=== PATIENT | female | born 1925 | race Caucasian/White ===

== ENCOUNTER 2016-12-12 13:43 | Emergency (ER) | payer MEDICARE, OTHER ==
[2016-12-12] MEDS ORDERED: DIPH,PERTUSS(ACELL),TET VAC/PF 0.5 ML DISP.SYRIN IM ONE (14:16)
[2016-12-12] MEDS ORDERED: HYDROcodone /APAP 5/325 1 EACH TABLET PO ONE (14:53)
[2016-12-12 15:07] LABS: BASOPHILS % 0.4 (0.0-1.5); LYMPHOCYTES # 0.9 # k/uL (0.6-4.0); MEAN CORPUSCULAR HEMOGLOBIN 30.6 pg (28.0-34.0); MONOCYTES # 0.3 # k/uL (0.0-0.9); MONOCYTES % 6.6 % (0.0-11.0); NEUTROPHILS # 3.1 # k/uL (1.4-7.7)
--- NOTE | 2016-12-12 15:18 | Diagnostic Imaging Report ---
[facility] [address] [facility].[address] [address] Report Submission Date: Dec 12, 2016 2:43:47 PM CONTRACT ASSOCIATE Patient Study Name: ANEESH ESPITIA Date: Dec 12, 2016 2:30:51 PM CONTRACT ASSOCIATE Modality Type: CR Gender: F Description: LOWER EXTREMITY : [birth year] Institution: [facility] Physician CAITLIN WOODWARD - ER Right knee -three views CLINICAL HISTORY: Fall. Pain anteriorly. FINDINGS: Examination right knee AP, lateral and sunrise views demonstrates degenerative changes with narrowing of the joint space bilaterally. There are prominent lateral osteophytes. There is mild prominence of the tibial spines. There is no evident fracture or joint effusion. IMPRESSION: Degenerative changes. No fracture. Electronically signed on Dec 12, 2016 2:43:47 PM CONTRACT ASSOCIATE by: Ramana CARRION
--- NOTE | 2016-12-12 15:18 | Diagnostic Imaging Report ---
[facility] [address] [facility] [address] [address] Report Submission Date: Dec 12, 2016 2:42:07 PM CONFIGURATION MANAGEMENT SPECIALIST Patient Study Name: ANEESH ESPITIA Date: Dec 12, 2016 2:22:38 PM CONFIGURATION MANAGEMENT SPECIALIST Modality Type: CT\SR Gender: F Description: CT BRAIN W/O CONTRAST : [birth year] Institution: [facility] Physician CAITLIN WOODWARD - KEVIN Head CT without contrast CLINICAL HISTORY: Fall. TECHNIQUE: CT examination of brain is performed in contiguous axial slices without the use of contrast. Sagittal and coronal reconstructions are performed by the technologist. FINDINGS: The 4th ventricle lies in a normal midline position. The ventricles and sulci are prominent secondary to atrophy. Chronic ischemic changes are present in the periventricular regions. Intracranial atherosclerosis is demonstrated in the region of the carotid siphon. Retention cyst is present in the sphenoid sinus. The mastoid air cells are clear. IMPRESSION: Atrophy and chronic small vessel ischemic changes. Intracranial atherosclerosis. No acute intracranial changes. Electronically signed on Dec 12, 2016 2:42:07 PM CONFIGURATION MANAGEMENT SPECIALIST by: Ramana CARRION
[2016-12-12 15:29] LABS: eGFR (African) > 60; eGFR (Non-African) > 60
--- NOTE | 2016-12-12 15:56 | ED Physician Documentation ---
General Adult - HISTORIAN Historian: patient - HPI Stated Complaint: fall Chief Complaint: General Adult Onset: hours Timing: still present Severity: moderate Further Comments: yes (Pt is an 89 yo female who fell earlier today and struck her head on the edge of a door to a store in [place]. Pt then fell to the pavement and struck her R knee. Pt also sustained a small laceration to the small finger of her L hand. Pt has no neck pain. She did not lose consciousness. Tetanus status unknown. Pt states head pain is 8/10 severity.) - ROS CONST: no problems EYES/ENT: none, problems with vision CVS/RESP: none GI/: none MS/SKIN/LYMPH: other (laceration L small finger) NEURO/PSYCH: headache - PAST HX Past History: hypertension Surgeries/Procedures: hysterectomy, other (ortho surgery) Allergies/Adverse Reactions: Allergies Allergy/AdvReac Type Severity Reaction Status Date / Time sulfamethoxazole Allergy Intermediate Abdominal Verified 12/12/16 14:39 [From Bactrim] pain trimethoprim [From Bactrim] Allergy Intermediate Abdominal Verified 12/12/16 14: 39 pain - SOCIAL HX Smoking History: non-smoker - FAMILY HX Family History: No - VITAL SIGNS Vital Signs: Vital Signs Temp Pulse Resp BP Pulse Ox 99.1 F 68 16 156/55 93 12/12/16 13:50 12/12/16 13:50 12/12/16 13:50 12/12/16 13:50 12/12/16 13:50 - REVIEWED ASSESSMENTS Nursing Assessment Reviewed: Yes Vitals Reviewed: Yes Procedures Wound Location: upper extremity (L hand, 5th digit, flap laceration, 1.5 cm.) Wound's Depth, Shape: superficial Wound Explored: clean Irrigated w/ Saline (ccs): 50 Betadine Prep?: Yes Wound Debrided: minimal Wound Repaired With: steri-strips, Dermabond Progress - Progress Progress: CT head: Atrophy and chronic small vessel ischemic changes. Intracranial atherosclerosis. No acute intracranial changes. X-ray R knee: Degenerative changes. No fracture. Felton (5/325) 1 tab in ER. SURESH wrap Tylenol/Ibuprofen f/u pcp ED Results Lab/Radiology - Lab Results Lab Results: Lab Results 12/12/16 12/12/16 15:00 15:00 WBC 4.50 K/ul K/ul (4.00-12.00) RBC 4.47 M/ul M/ul (3.90-5.20) Hgb 13.7 g/dL g/dL (12.0-16.0) Hct 42.6 % % (34.5-46.5) MCV 95.2 fl fl (80.0-100.0) MCH 30.6 pg pg (28.0-34.0) MCHC 32.2 g/dL g/dL (30.0-36.0) RDW 13.3 % % (11.3-14.3) Plt Count 189 K/mm3 K/mm3 (130-400) Neut % (Auto) 69.0 % % (39.0-79.0) Lymph % (Auto) 19.7 % % (16.0-50.0) Oldham % (Auto) 6.6 % % (0.0-11.0) Eos % (Auto) 3.0 % % (0.0-6.8) Baso % (Auto) 0.4 (0.0-1.5) Neut # 3.1 # k/uL # k/uL (1.4-7.7) Lymph # 0.9 # k/uL # k/uL (0.6-4.0) Oldham # 0.3 # k/uL # k/uL (0.0-0.9) Eos # 0.1 # k/uL # k/uL (0.0-0.6) Baso # 0.0 # k/uL # k/uL (0.0-0.5) Reactive Lymphs % 1.4 % % (0.0-5.0) Reactive Lymphs # 0.1 # k/uL # k/uL (0.0-0.8) Sodium 140 mmol/L mmol/L (136-145) Potassium 4.2 mmol/L mmol/L (3.5-5.0) Chloride 108 mmol/L mmol/L (98-110) Carbon Dioxide 26 mmol/L mmol/L (20-32) BUN 14 mg/dL mg/dL (10-26) Creatinine 0.9 mg/dL mg/dL (0.4-1.5) Estimated Creat Clear 52 Est GFR ( Amer) > 60 (60 - ) Est GFR (Non-Af Amer) > 60 (60 - ) Glucose 119 mg/dL H mg/dL (70-99) Calcium 8.7 mg/dL mg/dL (8.5-10.5) Total Bilirubin 0.6 mg/dL mg/dL (0.2-1.2) AST 20 U/L U/L (0-41) ALT 10 U/L U/L (0-45) Alkaline Phosphatase 50 U/L U/L (46-116) Total Protein 6.7 g/dL g/dL (6.0-8.5) Albumin 3.7 g/dL g/dL (3.0-5.5) - Orders Orders: ED Orders Category Date Time Status CT BRAIN W/O CONTRAST Stat Exams 12/12/16 Completed KNEE 3 VIEWS [RAD] Stat Exams 12/12/16 Completed CBC/PLATELET/DIFF Routine Lab 12/12/16 15:00 Completed CMP Routine Lab 12/12/16 15:00 Completed TSH [THYROID STIMULATING HORMONE] Stat Lab 12/12/16 15:00 Received Diph,Pertuss(Acell),Tet Vac/Pf [Adacel] Med 12/12/16 14:16 Discontinued 0.5 ml IM .ONCE ONE HYDROcodone /APAP 5/325 [Felton 5/325] Med 12/12/16 14:53 Discontinued 1 each PO NOW ONE General Adult Physical Exam - PHYSICAL EXAM GENERAL APPEARANCE: small hematoma central forehead at hairline EENT: eye inspection normal, ENT inspection normal, pharynx normal NECK: normal inspection, supple RESPIRATORY: no resp distress, chest non-tender, breath sounds normal CVS: reg rate & rhythm, heart sounds normal ABDOMEN: soft, no organomegaly, normal bowel sounds BACK: normal inspection, no CVA tenderness SKIN: other (small flap laceration, 5th digit of L hand, superficial) EXTREMITIES: other (bruising R knee with superficial swelling; FROM; no ligamentous instability.) NEURO: oriented X3, motor nml, sensation nml Discharge Clincal Impression: Minor head trauma Fall Qualifiers: Encounter type: initial encounter Qualified Code(s): W19.XXXA - Unspecified fall, initial encounter Right knee injury Qualifiers: Encounter type: initial encounter Qualified Code(s): S89.91XA - Unspecified injury of right lower leg, initial encounter Finger laceration Qualifiers: Encounter type: initial encounter Qualified Code(s): S61.219A - Laceration without foreign body of unspecified finger without damage to nail, initial encounter Referrals: Jude Galvan MD [Primary Care Provider] - Condition: Stable Disposition: 01 HOME, SELF-CARE Decision to Admit: NO Decision Time: 18:27
[2016-12-12 17:04] VITALS: BP 164/81
== END 2016-12-12 16:14 | disposition home or self-care (01) ==
LOC: ED 13:43
DX: S89.91XA Unspecified injury of right lower leg, initial encounter (principal); S61.219A Laceration without foreign body of unspecified finger without damage to nail, initial encounter; W19.XXXA Unspecified fall, initial encounter; Y93.9 Activity, unspecified; Y99.9 Unspecified external cause status; S09.90XA Unspecified injury of head, initial encounter
CPT/HCPCS: 70450; 73562; 80053; 84443; 85025; 90715; A9270; 90471; 99282; 99284